=== PATIENT | female | born 1970 | race Two or more races ===

== ENCOUNTER 2019-04-30 05:59 | Day surgery (SDC) | payer OTHER ==
[~2019-04-30] VITALS: Ht 154.9 cm; Wt 68.9 kg
[2019-04-30] VITALS (10 sets, daily range): BP systolic 97–143; BP diastolic 62–87
[~2019-04-30 05:59] MED LIST: NKM
[2019-04-30] MEDS ORDERED: oxyCONTIN 20mg tab ORAL ONE (06:00)
[2019-04-30] MEDS ORDERED: celeBREX 200mg Cap **SURGERY PATIENTS ONLY ORAL ONE (06:00)
[2019-04-30] MEDS ORDERED: ceFAZolin 1gm IVPB IVPB ONE ×2 (06:00)
[2019-04-30] MEDS ORDERED: Midazolam 2mg/2ml Inj ONE (06:56)
[2019-04-30] MEDS ORDERED: fentaNYL 100 mcg/2 mL IV ONE (06:56)
[2019-04-30] MEDS ORDERED: Propofol 200mg/20ml IV ONE (07:04)
[2019-04-30] MEDS ORDERED: Lidocaine 1% MPF 10mg/ml 5ml ONE (07:04)
[2019-04-30] MEDS ORDERED: Ketorolac 30mg Inj ONE ×2 (07:10→08:02)
[2019-04-30] MEDS ORDERED: Kenalog-40 1ml Vial ONE (07:10)
[2019-04-30] MEDS ORDERED: Duramorph PF 5mg/10ml amp ONE (07:10)
[2019-04-30] MEDS ORDERED: Bupivacaine 0.25% Inj 30ml INJ ONE (07:11)
[2019-04-30] MEDS ORDERED: Lidocaine 1% 10mg/ml/Epi 0.005mg/ml 30ml vial INJ ONE (07:11)
[2019-04-30] MEDS ORDERED: NS Irrig 2000ml IRRIG ONE (07:30)
[2019-04-30] MEDS ORDERED: LR 1000ml ONE (07:30)
--- NOTE | 2019-04-30 07:34 | Pre-Procedure Note/Attestation ---
Pre-Procedure Note/Attestation Complete Prior to Procedure Planned Procedure: right Procedure Narrative: knee diagnostic arthroscopy, possible menisectomy/synovectomy Attestation I attest that I discussed the nature of the procedure; its benefits; risks and complications; and alternatives (and the risks and benefits of such alternatives ), prior to the procedure, with the patient (or the patient's legal insurance follow up representative). I attest that, if there was a reasonable possibility of needing a blood transfusion, the patient (or the patient's legal insurance follow up representative) was given the [facility] standardized written summary, pursuant to the [place] Blood Safety Act ([place] Health and Safety Code # 1645, as amended). I attest that I re-evaluated the patient just prior to the surgery and that there has been no change in the patient's H&P, except as documented below: Kaushal Young MD Apr 30, 2019 07:34
--- NOTE | 2019-04-30 07:35 | Operative Note - PDOC ---
Operative Note Operative Note Pre-op Diagnosis: right knee internal derangment Procedure: see op report Post-op Diagnosis: same as pre-op plus Operative Findings: consistent w/pre-op dx studies Anesthesia: MAC Specimen: none Complications: none Condition: stable Estimated Blood Loss: none Implant(s) used?: No Kaushal Young MD Apr 30, 2019 07:35
--- NOTE | 2019-04-30 07:35 | Pre-Procedure Note/Attestation ---
Pre-Procedure Note/Attestation Complete Prior to Procedure Planned Procedure: right Procedure Narrative: knee diagnostic arthroscopy, possible menisectomy/synovectomy Indications for Procedure Pre-Operative Diagnosis: right knee internal derangment Attestation I attest that I discussed the nature of the procedure; its benefits; risks and complications; and alternatives (and the risks and benefits of such alternatives ), prior to the procedure, with the patient (or the patient's legal independent sales representative). I attest that, if there was a reasonable possibility of needing a blood transfusion, the patient (or the patient's legal independent sales representative) was given the [facility] standardized written summary, pursuant to the [place] Blood Safety Act ([place] Health and Safety Code # 1645, as amended). I attest that I re-evaluated the patient just prior to the surgery and that there has been no change in the patient's H&P, except as documented below: Kaushal Young MD Apr 30, 2019 07:35
[2019-04-30] MEDS ORDERED: HYDROmorphone 1mg/ml Carpuject SUBQ PRN (07:45)
[2019-04-30] MEDS ORDERED: HYDROcodone/Acetamin 5/325 tab ORAL PRN (07:45)
[2019-04-30] MEDS ORDERED: Tylenol #3 tab (300mg/30mg) ORAL PRN (07:45)
[2019-04-30] MEDS ORDERED: D5 1/2NS 1,000 ML IV SCH (07:45)
[2019-04-30] MEDS ORDERED: Duramorph PF 5mg/10ml amp EPIDUR ONE (07:47)
[2019-04-30] MEDS ORDERED: LR 1000ml 1,000 ML IVLG SCH (07:58)
--- NOTE | 2019-04-30 07:58 | Anethesia Preoperative Eval ---
Anesthesia Pre-op PMH/ROS General Date of Evaluation: Apr 30, 2019 Time of Evaluation: 07:20 Anesthesiologist: Cordell ASA Score: ASA 2 Mallampati Score Class I : Soft palate, uvula, fauces, pillars visible Class II: Soft palate, uvula, fauces visible Class III: Soft palate, base of uvula visible Class IV: Only hard plate visible Mallampati Classification: Class II Surgeon: Hector Diagnosis: R knee pain Surgical Procedure: R knee scope Anesthesia History: none Allergies: Coded Allergies: No Known Allergies (Unverified , 04/29/19) Medications: see eMAR Patient NPO?: Yes Past Medical History Cardiovascular: Denies: HTN, CAD, [place], valve dz, arrhythmia, other Pulmonary: Denies: asthma, COPD, SIRENA, other Gastrointestinal/Genitourinary: Reports: GERD; Denies: CRI, ESRD, other Neurologic/Psychiatric: Denies: dementia, CVA, depression/anxiety, TIA, other Endocrine: Denies: DM, hypothyroidism, steroids, other HEENT: Denies: cataract (L), cataract (R), glaucoma, [place] (L), [place] (R), other Hematology/Immune: Denies: anemia, DVT, bleeding disorder, other Musculoskeletal/Integumentary: Denies: OA, RA, DJD, DDD, edema, other Other: other - overweight PMH Narrative: as above PSxH Narrative: None Anesthesia Pre-op Phys. Exam Physician Exam Last Vital Signs Date Time Temp Pulse Resp B/P (MAP) Pulse Ox O2 Delivery O2 Flow Rate FiO2 04/30/19 07:00 98.1 67 20 134/86 98 Room Air Constitutional: NAD Neurologic: CN 2-12 intact Cardiovascular: RRR, no M/R/G Gastrointestinal: S/NT/ND Airway Exam Mallampati Score: Class II MO: limited Neck: short Teeth: intact Dentures: no upper, no lower Anesthesia Pre-op A/P Labs see chart Urine Test Test 04/30/19 06:10 Urine HCG, Qualitative Negative (NEGATIVE) Studies Pre-op Studies: EKG - NSR Risk Assessment & Plan Assessment: ASA 2 Plan: GA with LMA Status Change Before Surgery: No Pre-Antibiotics Drug: Ancef 1gr. Given Within 1 Hr of Incision: Yes Time Given: 07:54 Taye Landa MD Apr 30, 2019 07:58
[2019-04-30] MEDS ORDERED: Meperidine 50mg/ml Inj(FOR RIGORS ONLY) IV PRN (08:00)
[2019-04-30] MEDS ORDERED: Ketorolac 30mg Inj IV PRN (08:00)
[2019-04-30] MEDS ORDERED: Metoclopramide 10mg/2ml Inj IVP PRN (08:00)
--- NOTE | 2019-04-30 08:24 | Immediate Post-Op Evaluation ---
Immediate Post-Op Evalulation Immediate Post-Op Evalulation Procedure: R knee arthroscopy meniscectomy Date of Evaluation: Apr 30, 2019 Time of Evaluation: 08:23 IV Fluids: 600 Blood Products: none Estimated Blood Loss: min Urinary Output: none Blood Pressure Systolic: 104 Blood Pressure Diastolic: 56 Pulse Rate: 72 Respiratory Rate: 20 O2 Sat by Pulse Oximetry: 99 Temperature (Fahrenheit): 97.6 Pain Score (1-10): 1 Nausea: No Vomiting: No Complications none Patient Status: reacts, patent, none Hydration Status: adequate Taye Landa MD Apr 30, 2019 08:24
--- NOTE | 2019-04-30 10:56 | 48 Hour Post Anesthesia Eval ---
Post Anesthesia Evaluation Procedure: R knee arthroscopy meniscectomy Date of Evaluation: Apr 30, 2019 Time of Evaluation: 10:55 Blood Pressure Systolic: 128 0: 72 Pulse Rate: 68 Respiratory Rate: 20 Temperature (Fahrenheit): 97.6 O2 Sat by Pulse Oximetry: 98 Airway: patent Nausea: No Vomiting: No Pain Intensity: 1 Hydration Status: adequate Cardiopulmonary Status: stable Mental Status/LOC: patient returned to baseline Follow-up Care/Observations: n/a Post-Anesthesia Complications: none Follow-up care needed: ready to discharge Taye Landa MD Apr 30, 2019 10:55
--- NOTE | 2019-04-30 15:45 | Operative Note - Dictated ---
DATE OF OPERATION: 04/30/2019 PREOPERATIVE DIAGNOSIS: Right knee internal derangement secondary to meniscal pathology. POSTOPERATIVE DIAGNOSES: 1. Right knee medial femoral condyle grade 3 chondral damage. 2. Hypertrophic synovial tissue/fat pad, patellofemoral and medial compartment. PROCEDURES: 1. Right knee diagnostic arthroscopy, synovectomy/excision of fat pad, medial and patellofemoral compartment. 2. Gentle chondroplasty, medial femoral condyle. SURGEON: Kaushal Young M.D. ANESTHESIA: General. INDICATION FOR PROCEDURE: The patient is a pleasant 48-year-old female with progressive right knee pain, failed conservative treatment, elected to undergo right knee diagnostic arthroscopy, possible synovectomy, chondroplasty. Risks, limitations, expectations, complications of the procedure were discussed in detail. All questions addressed. DESCRIPTION OF PROCEDURE: After informed consent was obtained, the patient was brought to the operating room, the patient was placed under general anesthesia. Right leg was prepped and draped in a sterile manner. Time-out was performed. An inferolateral stab incision was then made. Trocar was introduced into the knee joint. Systematic tour of the knee was performed. There was hypertrophic fat pad in the patellofemoral compartment making visualization of patellofemoral compartment difficult. There was thickening of the medial capsule and plica. Medial compartment was entered. The medial working portal was established. Excision of the fat pad, the synovium, the anterior aspect of the medial compartment extending to intercondylar notch and lateral compartment was performed. Once that was done, the meniscus was probed and noted to be intact. There was grade 2 chondral damage in the distal medial femoral condyle. Once that was completed, the ACL was probed and noted to be intact. Lateral compartment was entered. Note, the meniscal chondral damage patellofemoral compartment and completion of the excision of the fat pad and synovial tissue was performed. Instruments removed. Portal sites were closed with 3-0 Monocryl sutures. Steri-Strips and a sterile dressing were applied. The patient was awoken and taken to recovery room with stable vital signs. ESTIMATED BLOOD LOSS: None. COMPLICATIONS: None. SPECIMENS: None. IMPLANTS: None. Kaushal Young M.D. DR: PATRICIA JOB#: [id number] CC: KEVIN
== END 2019-04-30 10:20 | disposition home or self-care (01) ==
LOC: SUR 05:59
DX: M67.261 Synovial hypertrophy, not elsewhere classified, right lower leg (principal); M79.4 Hypertrophy of (infrapatellar) fat pad; M23.91 Unspecified internal derangement of right knee; K21.9 Gastro-esophageal reflux disease without esophagitis; E66.3 Overweight; Z68.28 Body mass index [BMI] 28.0-28.9, adult
CPT/HCPCS: 29876; 81025; J0690; J1885; J2250; J2405; J2704; J3010; J3301; J3490; 94003; 94150